=== PATIENT | female | born 1940 | race Caucasian/White ===

== ENCOUNTER 2019-04-05 11:13 | Emergency (ER) | payer MEDICARE ==
[~2019-04-05] VITALS: Ht 152.4 cm; Wt 75.3 kg
[2019-04-05 11:13] VITALS: BP 177/57
[~2019-04-05 11:13] MED LIST: AMLO5TAB PO; ATOR20TA PO; CARV6.25 PO; CETI-32 PO; GLIP5TAB13 PO; GLIP5TAB4 PO; INSU10SU2 SC; LEVO0.0841 PO; LISI2.5T12 PO; METF1000 PO; NITR0.4T94 SL; RANI-745 PO
--- NOTE | 2019-04-05 11:15 | NUR ---
Patient transferred to bed 8 via wheelchair by tech. RN evaluating patient at bedside. Accompanied by family.
[2019-04-05] MEDS ORDERED: DEXTROSE 50% 50 ML SYR IVP ONE ×2 (11:19→11:25)
--- NOTE | 2019-04-05 11:25 | NUR ---
Dr. Tolbert is evaluating the patient at bedside.
--- NOTE | 2019-04-05 11:41 | NUR ---
line technician at bedside.
[2019-04-05 12:34] LABS: BASOPHILS % (AUTO) 0.1 % (0.0-2.0); EOSINOPHILS % (AUTO) 0.3 % (0.0-4.0); HEMATOCRIT 30.6 % (36-48); HEMOGLOBIN 9.9 g/dL (12.0-16.0); LYMPHOCYTES # (AUTO) 1.5 K/uL (2.5-16.5); MEAN CORPUSCULAR HEMOGLOBIN 30 pg (27-31); MEAN CORPUSCULAR HGB CONC 32 g/dL (33-37); MEAN CORPUSCULAR VOLUME 92.8 fL (80-94); MONOCYTES # (AUTO) 0.6 K/uL (0.8-1.0); MONOCYTES % (AUTO) 5.6 % (1.7-9.3); NEUTROPHILS # (AUTO) 8.3 K/uL (1.8-7.7); PLATELET COUNT (AUTO) 173 K/uL (140-450); RED CELL DISTRIBUTION WIDTH 15.7 % (11.6-13.7); WHITE BLOOD COUNT (AUTO) 10.4 K/uL (4.8-10.8)
[2019-04-05 13:56] LABS: ANION GAP 13.7 (8-16); CHLORIDE 100 mmol/L (98-107); CREATININE 0.8 mg/dL (0.6-1.3); GLUCOSE 199 mg/dL (74-106); POTASSIUM 4.7 mmol/L (3.5-5.1); SODIUM SERUM 138 mmol/L (136-145); UREA NITROGEN, BLOOD 10 mg/dL (7-18)
[2019-04-05 15:18] VITALS: BP 115/72
--- NOTE | 2019-04-05 15:18 | NUR ---
Patient discharged with v/s stable. Written and verbal after care instructions given and explained. Patient verbalized understanding. Ambulatory with steady gait. All questions addressed prior to discharge. Advised to follow up with PMD.
== END 2019-04-05 15:18 | disposition home or self-care (01) ==
LOC: MED 11:13
DX: R55 Syncope and collapse (principal); E11.9 Type 2 diabetes mellitus without complications; I10 Essential (primary) hypertension; E07.9 Disorder of thyroid, unspecified; Z79.4 Long term (current) use of insulin; Z79.899 Other long term (current) drug therapy
CPT/HCPCS: 36415; 71045; 80048; 82948; 84484; 85025; 96374; 99284; Q0092

== ENCOUNTER 2019-06-09 09:54 | Emergency (ER) | payer MEDICARE ==
[~2019-06-09] VITALS: Ht 162.6 cm; Wt 67.1 kg
[2019-06-09 10:11] VITALS: BP 166/77
--- NOTE | 2019-06-09 10:18 | NUR ---
ASSISTED PT TO WAIT IN THE LOBBY.
--- NOTE | 2019-06-09 10:58 | NUR ---
PT AMBULATED TO BED 07.
--- NOTE | 2019-06-09 11:12 | NUR ---
78 YO FEMALE CO LOW BLOOD SUGAR LAST NIGHT AT HOME. PT STATED THAT BS WAS 21 AT THAT TIME. CURRENT BS IS 285. PT DENIES ANY N/V/D. PT HAS HX OF HIGH CHOLESTEROL, DM, HTN, THYROID ISSUES. PT IS TAKING MEDS FOR ALL ISSUES AND ARE CURRENT IN THE SYSTEM. DAUGHTER IS IN ROOM WITH PATIENT. PT DENIES ANY PAIN AT THIS TIME.
--- NOTE | 2019-06-09 11:14 | NUR ---
FLU SWAB OBTAINED
--- NOTE | 2019-06-09 11:30 | NUR ---
FLU SWAB DROPPED OFF AT LAB AT 2919
--- NOTE | 2019-06-09 13:36 | NUR ---
PROVIDED WITH MEAL TRAY.
--- NOTE | 2019-06-09 13:54 | NUR ---
Patient discharged with v/s stable. Written and verbal after care instructions given and explained. Patient/DAUGHTER verbalized understanding. Ambulatory with steady gait. All questions addressed prior to discharge. Advised to follow up with PMD.
[2019-06-09 13:55] VITALS: BP 138/74
== END 2019-06-09 13:54 | disposition home or self-care (01) ==
LOC: MED 09:54
DX: E11.649 Type 2 diabetes mellitus with hypoglycemia without coma (principal); I10 Essential (primary) hypertension; Z90.49 Acquired absence of other specified parts of digestive tract; Z86.73 Personal history of transient ischemic attack (TIA), and cerebral infarction without residual deficits; Z79.899 Other long term (current) drug therapy; Z79.4 Long term (current) use of insulin
CPT/HCPCS: 82948; 87804; 99283

== ENCOUNTER 2021-06-20 16:04 | Emergency (ER) | payer MEDICARE, OTHER ==
[~2021-06-20] VITALS: Ht 153.7 cm; Wt 71.7 kg
[~2021-06-20 16:04] MED LIST changes: -CETI-32 PO; +CETI10TA81 PO; +GLIP5TAB14 PO; -GLIP5TAB4 PO
[2021-06-20 16:21] VITALS: BP 184/83
[2021-06-20] MEDS ORDERED: HYDROcodone/APAP 5/325 MG 1 TAB TAB PO ONE (16:40)
--- NOTE | 2021-06-20 16:54 | NUR ---
Pt ambulated to room 07
--- NOTE | 2021-06-20 17:00 | NUR ---
80-year-old Female BIB self for c/o sharp like 7/10 pain to right shoulder radiating to back. Denies any recent trauma at this time. AOX4, able to make needs known. Resp even and unlabored on RA. Lung sounds clear bilat. Denies N/V/D/CP at this time PmHx: CVA, DM, HTN, Hypothyroidism, HLD. Allergies: Denies
--- NOTE | 2021-06-20 17:17 | NUR ---
RAD AT PATIENT BEDSIDE.
--- NOTE | 2021-06-20 17:22 | NUR ---
Blood specimen ontained and walked over to lab
[2021-06-20 17:34] LABS: BASOPHILS % (AUTO) 0.3 % (0.0-2.0); EOSINOPHILS % (AUTO) 0.2 % (0.0-4.0); HEMATOCRIT 38.5 % (36-48); HEMOGLOBIN 12.5 g/dL (12.0-16.0); LYMPHOCYTES # (AUTO) 1.7 K/uL (2.5-16.5); LYMPHOCYTES % (AUTO) 12.6 % (20.5-51.1); MEAN CORPUSCULAR HEMOGLOBIN 26 pg (27-31); MEAN CORPUSCULAR HGB CONC 33 g/dL (33-37); MEAN CORPUSCULAR VOLUME 80.2 fL (80-94); MONOCYTES % (AUTO) 7.7 % (1.7-9.3); NEUTROPHILS # (AUTO) 10.4 K/uL (1.8-7.7); NEUTROPHILS % (AUTO) 79.2 % (42.2-75.2); PLATELET COUNT (AUTO) 348 K/uL (140-450); RED CELL DISTRIBUTION WIDTH 14.5 % (11.6-13.7); WHITE BLOOD COUNT (AUTO) 13.1 K/uL (4.8-10.8)
[2021-06-20 17:52] LABS: ALBUMIN 3.9 g/dL (3.4-5.0); ANION GAP 15.2 (8-16); ASPARTATE AMINOTRANSFERASE 14 U/L (15-37); CHLORIDE 97 mmol/L (98-107); CREATININE 0.8 mg/dL (0.6-1.3); GLUCOSE 265 mg/dL (74-106); POTASSIUM 4.2 mmol/L (3.5-5.1); SODIUM SERUM 134 mmol/L (136-145); TOTAL BILIRUBIN 0.3 mg/dL (0.0-1.0); UREA NITROGEN, BLOOD 20 mg/dL (7-18)
[2021-06-20] MEDS ORDERED: KETOROLAC 15 MG/ML VIAL IVP ONE (18:20)
--- NOTE | 2021-06-20 19:09 | NUR ---
SPOKE TO NISHA MCDERMOTT ON PHONE OVER PATIENT CONDITION. 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
--- NOTE | 2021-06-20 19:12 | NUR ---
PT WAS ABLE TO PROVIDE URINE SAMPLE.
--- NOTE | 2021-06-20 19:20 | NUR ---
RECEIVED REPORT FROM NORAH CUNNINGHAM. [facility].
--- NOTE | 2021-06-20 19:21 | NUR ---
Pt report given to DONNA ALMAZAN. Transfer of care at this time.PATIENT STABLE
--- NOTE | 2021-06-20 19:28 | NUR ---
LULU, SON: [phone]
[2021-06-20] MEDS ORDERED: LID5T TP (19:30)
[2021-06-20] MEDS ORDERED: NAPR-54 PO (19:30)
[2021-06-20 19:45] VITALS: BP 160/60
--- NOTE | 2021-06-20 19:45 | NUR ---
Patient discharged with v/s stable. Written and verbal after care instructions given and explained. Patient alert, oriented and verbalized understanding of instructions. Ambulatory with steady gait. All questions addressed prior to discharge. ID band removed. Patient advised to follow up with PMD. Rx of naprosyn and lidoderm given. Patient educated on indication of medication including possible reaction and side effects. Opportunity to ask questions provided and answered.
== END 2021-06-20 19:45 | disposition home or self-care (01) ==
LOC: MED 16:04
DX: S46.811A Strain of other muscles, fascia and tendons at shoulder and upper arm level, right arm, initial encounter (principal); S29.019A Strain of muscle and tendon of unspecified wall of thorax, initial encounter; E11.9 Type 2 diabetes mellitus without complications; E78.5 Hyperlipidemia, unspecified; E07.9 Disorder of thyroid, unspecified; Z79.4 Long term (current) use of insulin; Z79.899 Other long term (current) drug therapy; X58.XXXA Exposure to other specified factors, initial encounter; Y93.89 Activity, other specified; Y92.89 Other specified places as the place of occurrence of the external cause; Y99.8 Other external cause status
CPT/HCPCS: 36415; 71045; 80053; 81002; 84484; 85025; 93005; 96374; 99285; J1885

== ENCOUNTER 2021-06-22 14:23 | Emergency (ER) | payer OTHER ==
[~2021-06-22] VITALS: Ht 152.4 cm; Wt 71.7 kg
[~2021-06-22 14:23] MED LIST changes: +LID5T TP; +NAPR-54 PO
[2021-06-22 14:27] VITALS: BP 200/94
--- NOTE | 2021-06-22 15:37 | NUR ---
DR MENESES EXAMINING PT
[2021-06-22] MEDS ORDERED: KETOROLAC 15 MG/ML VIAL IM ONE (16:10)
--- NOTE | 2021-06-22 16:12 | NUR ---
PATIENT TAKEN TO CT VIA WHEELCHAIR.
--- NOTE | 2021-06-22 16:21 | NUR ---
PATIENT TAKEN BACK TO LOBBY VIA WHEELCHAIR.
--- NOTE | 2021-06-22 16:21 | NUR ---
80 y/o female, pt states she is still having continued back pain from previous visit. pt states she asked [employer] for help and was told that she has shingles and would like to be treated for that. informed pt that md would have to assess and find indications for shingles tx at this time. denies rash, fevers, cough, sob, chills, runny nose, dysuria, or hematuria. pmh: htn, dm2 nka med: tylenol 325mg 2 po
[2021-06-22] MEDS ORDERED: ACYC400T14 PO ×2 (16:58→17:02)
--- NOTE | 2021-06-22 17:25 | NUR ---
Patient discharged with v/s stable. Written and verbal after care instructions ABOUT SHINGLES given and explained. Patient alert, oriented and verbalized understanding of instructions. Ambulatory with to car. All questions addressed prior to discharge. ID band removed. Patient advised to follow up with PMD. Rx of ACYCLOVIR given. Patient educated on indication of medication including possible reaction and side effects. Opportunity to ask questions provided and answered.
== END 2021-06-22 17:25 | disposition home or self-care (01) ==
LOC: MED 14:23
DX: B02.9 Zoster without complications (principal); M25.511 Pain in right shoulder; E11.9 Type 2 diabetes mellitus without complications; I10 Essential (primary) hypertension; E07.9 Disorder of thyroid, unspecified; Z79.4 Long term (current) use of insulin; Z86.73 Personal history of transient ischemic attack (TIA), and cerebral infarction without residual deficits; Z79.899 Other long term (current) drug therapy
CPT/HCPCS: 71250; 72128; 96372; 99284; J1885

== ENCOUNTER 2022-08-29 18:21 | Emergency (ER) | payer OTHER ==
[~2022-08-29] VITALS: Ht 162.6 cm; Wt 76.7 kg
[~2022-08-29 18:21] MED LIST changes: +ACYC400T14 PO; +METF-1274 PO; -METF1000 PO
[2022-08-29 18:41] VITALS: BP 132/65
[2022-08-29 19:11] LABS: APPEARANCE,URINE CLOUDY (CLEAR); BILIRUBIN,URINE NEGATIVE (NEGATIVE); BLOOD, URINE 3+ (NEGATIVE); COLOR,URINE YELLOW (YELLOW); LEUKOCYTE ESTERASE ,URINE 2+ (NEGATIVE); NITRITE, URINE NEGATIVE (NEGATIVE); UGLUCOSE 2+ (NEGATIVE)
[2022-08-29] MEDS ORDERED: cephALEXin 500 MG CAP PO ONE (19:35)
[2022-08-29] MEDS ORDERED: CEPH-588 PO (19:35)
[2022-08-29 19:46] LABS: RBC,URINE TOO NUMEROUS TO COUN /HPF (0-5); TRICHOMONAS,URINE None Seen /HPF (None Seen); WBC,URINE TOO MANY TO COUNT /HPF (0-5); YEAST,URINE None Seen /HPF (None Seen)
[2022-08-29 19:55] VITALS: BP 132/65
== END 2022-08-29 19:55 | disposition home or self-care (01) ==
LOC: MED 18:21
DX: N39.0 Urinary tract infection, site not specified (principal); I10 Essential (primary) hypertension; E11.9 Type 2 diabetes mellitus without complications; E03.9 Hypothyroidism, unspecified; Z86.73 Personal history of transient ischemic attack (TIA), and cerebral infarction without residual deficits; Z79.4 Long term (current) use of insulin; Z79.899 Other long term (current) drug therapy
CPT/HCPCS: 81001; 87086; 99283

== ENCOUNTER 2022-10-21 20:37 | Inpatient (IN) | payer OTHER ==
[~2022-10-21] VITALS: Ht 160 cm; Wt 68.0 kg
[~2022-10-21 20:37] MED LIST changes: +CEPH-588 PO
[2022-10-21 20:55] VITALS: BP 166/82; PULSE 81; RESP 17; TEMP 97.7; O2SAT 97
--- NOTE | 2022-10-21 20:55 | NUR ---
TO BED AMBULATORY
[2022-10-21] MEDS ORDERED: NACL 0.9% 1,000 ML IV ONE (21:40)
--- NOTE | 2022-10-21 21:40 | NUR ---
Sanya rodriges in [facility] - 10/21/22 at 2235 by [email or web address] Pt taken to CT
[2022-10-21 22:01] LABS: BASOPHILS % (AUTO) 0.3 % (0.0-2.0); EOSINOPHILS # (AUTO) 0.1 K/uL (0-0.4); HEMATOCRIT 38.2 % (36-48); HEMOGLOBIN 12.7 g/dL (12.0-16.0); LYMPHOCYTES # (AUTO) 1.5 K/uL (2.5-16.5); LYMPHOCYTES % (AUTO) 13.6 % (20.5-51.1); MEAN CORPUSCULAR HEMOGLOBIN 27 pg (27-31); MEAN CORPUSCULAR HGB CONC 33 g/dL (33-37); MEAN CORPUSCULAR VOLUME 79.6 fL (80-94); MONOCYTES # (AUTO) 0.8 K/uL (0.8-1.0); MONOCYTES % (AUTO) 7.4 % (1.7-9.3); NEUTROPHILS # (AUTO) 8.5 K/uL (1.8-7.7); NEUTROPHILS % (AUTO) 77.7 % (42.2-75.2); PLATELET COUNT (AUTO) 348 K/uL (140-450); RED CELL DISTRIBUTION WIDTH 16.2 % (11.6-13.7)
[2022-10-21 22:16] LABS: ALBUMIN 3.9 g/dL (3.4-5.0); ANION GAP 14.2 (8-16); ASPARTATE AMINOTRANSFERASE 28 U/L (15-37); CHLORIDE 94 mmol/L (98-107); POTASSIUM 4.2 mmol/L (3.5-5.1); SODIUM SERUM 130 mmol/L (136-145); TOTAL BILIRUBIN 0.4 mg/dL (0.0-1.0); UREA NITROGEN, BLOOD 20 mg/dL (7-18)
[2022-10-21 22:17] LABS: GLUCOSE 430 mg/dL (74-106)
--- NOTE | 2022-10-21 22:35 | NUR ---
Pt ambulated to restroom accompanied by daughter. Gait steady
[2022-10-21 22:45] LABS: APPEARANCE,URINE CLEAR (CLEAR); BILIRUBIN,URINE NEGATIVE (NEGATIVE); BLOOD, URINE TRACE-I (NEGATIVE); COLOR,URINE YELLOW (YELLOW); LEUKOCYTE ESTERASE ,URINE NEGATIVE (NEGATIVE); NITRITE, URINE NEGATIVE (NEGATIVE); UGLUCOSE 3+ (NEGATIVE)
[2022-10-21 22:53] LABS: RBC,URINE 0-5 /HPF (0-5)
--- NOTE | 2022-10-21 23:03 | NUR ---
PT TAKEN TO RADIOLOGY
[2022-10-21] MEDS ORDERED: INSULIN REGULAR, HUMAN 100 UNIT/ML VIAL IV ONE (23:30)
[2022-10-22] MEDS ORDERED: FUROSEMIDE 40 MG/4 ML VIAL IVP SCH (00:50)
--- NOTE | 2022-10-22 02:47 | NUR ---
PT RETURN FROM CT
[2022-10-22] MEDS ORDERED: ONDANSETRON 4 MG/2 ML VIAL IVP PRN (03:40)
[2022-10-22] MEDS ORDERED: ZOLPIDEM 5 MG TAB PO PRN (03:40)
[2022-10-22] MEDS ORDERED: HYDROcodone/APAP 5/325 MG 1 TAB TAB PO PRN (03:40)
[2022-10-22] MEDS ORDERED: ACETAMINOPHEN 325 MG TAB PO PRN (03:40)
[2022-10-22 04:02] LABS: MAGNESIUM 1.9 mg/dL (1.8-2.4); PHOSPHORUS 3.1 mg/dL (2.5-4.9)
--- NOTE | 2022-10-22 04:56 | NUR ---
Report given to Doug ALMAZAN for transfer of care.
[2022-10-22 05:15] VITALS: BP 185/78; PULSE 83; RESP 18; TEMP 97.4
[2022-10-22 05:21] VITALS: PULSE 81
[2022-10-22 05:29] VITALS: PULSE 83
[2022-10-22 05:30] VITALS: RESP 18; O2SAT 99
[2022-10-22 05:47] VITALS: PULSE 83; RESP 18; O2SAT 99
[2022-10-22] MEDS ORDERED: INSULIN LISPRO SLIDING SCALE 100 UNITS/ML VIAL SUBQ PRN (08:30)
[2022-10-22] MEDS ORDERED: DEXTROSE 50% 50 ML SYR IVP PRN (08:30)
[2022-10-22] MEDS ORDERED: carvediloL 6.25 MG TAB PO SCH (09:00)
[2022-10-22] MEDS ORDERED: DOCUSATE SODIUM 100 MG GELCAP PO SCH (09:00)
[2022-10-22] MEDS ORDERED: lisinopriL 5 MG TAB PO SCH (09:00)
[2022-10-22] MEDS ORDERED: ASPIRIN 81 MG TAB.CHEW PO SCH (09:00)
[2022-10-22] MEDS ORDERED: ATORVASTATIN 20 MG TAB PO SCH (09:00)
--- NOTE | 2022-10-22 09:00 | NUR ---
PATIENT HAS BEEN SCREENED AND CATEGORIZED HIGH NUTRITION RISK. PATIENT WILL BE SEEN WITHIN 1-2 DAYS OF ADMISSION. 10/23/22-10/24/22 [facility] REFERRAL RECEIVED FOR UNCONTROLLED DIABETES ON 10/22/22. [address]
--- NOTE | 2022-10-22 10:00 | NUR ---
DC PLANNING: PATIENT WAS ADMITTED FROM HOME WITH A DX OF TIA VS STROKE. PATIENT HAS A HX OF HTN, HLD, AND HAD SLURRED SPEECH FOR [address] HEAD SHOWED ABNORMAL EDEMA IN LEFT PARIETAL TEMPORAL LOBE CTA HEAD AND NECK WITH NO ACUTE FINDINGS .CT NECK SHOWED SEVER RIGHT AND MILD LEFT INTERNAL CAROTID ARTERY STENOSIS. CONSULTED WITH NEURO. MRI OF THE BRAIN ORDERED FAXED TO [facility]. CM TO FOLLOW Addendum: 10/22/22 at 1321 by Lennie Parker RN DC PLANNING. CALLED [facility] CM [phone] LEFT MESSAGE AWAITING FOR THE AUTH # TO SCHEDULE FOR MRI. PER GIN ALMAZANENGINE TEST CELL TECHNICIAN WANTED TO TAKE HER TO OTHER HOSPITAL AND SIGNED AMA. CM TO FOLLOW
[2022-10-22] MEDS ORDERED: BLOOD GLUCOSE MONITORING 1 DEV DEV FS SCH (11:30)
[2022-10-22] MEDS ORDERED: INSULIN LISPRO 100 UNITS/ML VIAL SUBQ SCH (12:40)
--- NOTE | 2022-10-22 12:50 | NUR ---
patient left AMA. family wants to transfer patient to [facility]. Dr. Jacobsen notified that patient wants to leave AMA. Risks and benefits explained but still wants to leave AMA.
[2022-10-22] MEDS ORDERED: INSULIN NPH HUM/REG INSULIN HM 100 UNIT/ML 10 ML VIAL SUBQ SCH (21:00)
== END 2022-10-22 13:05 | disposition left against medical advice (07) | DRG 68 ==
LOC: MED 20:37 → OBSVTOIN 10-22 03:41 → MTU 10-22 03:41
PROVIDERS: ADMIT Internal Medicine; ATTEND Internal Medicine
DX: I65.23 Occlusion and stenosis of bilateral carotid arteries (principal); J81.1 Chronic pulmonary edema; I10 Essential (primary) hypertension; E78.00 Pure hypercholesterolemia, unspecified; D72.829 Elevated white blood cell count, unspecified; Z20.822 Contact with and (suspected) exposure to COVID-19; R29.700 NIHSS score 0; E11.65 Type 2 diabetes mellitus with hyperglycemia; R22.0 Localized swelling, mass and lump, head
CPT/HCPCS: 36415; 70450; 70460; 71045; 80053; 81001; 82948; 83735; 83880; 84100; 84484; 85025; 87081; 93880; 96361; 96374; 96375; 99291; J1815; J1940; Q0092; Q9967